=== PATIENT | male | born 1955 | race Caucasian/White ===

== ENCOUNTER → 2024-12-29 13:47 | Outpatient (REF) | payer MEDICARE, OTHER, SELFPAY | LOC: HWRCS 13:47 | PROVIDERS: ATTENDING PHYSICIAN Internal Medicine Cardiovascular Disease; FAMILY PHYSICIAN Internal Medicine | DX: I21.21 ST elevation (STEMI) myocardial infarction involving left circumflex coronary artery (principal); I25.10 Atherosclerotic heart disease of native coronary artery without angina pectoris; I25.5 Ischemic cardiomyopathy; I44.7 Left bundle-branch block, unspecified; I48.0 Paroxysmal atrial fibrillation | CPT/HCPCS: 93306 ==

== ENCOUNTER 2024-12-31 09:15 | Day surgery (SDC) | payer MEDICARE, OTHER, SELFPAY ==
[2024-12-31] VITALS (11 sets, daily range): BP systolic 103–124; BP diastolic 56–85; BMI 29.7
[2024-12-31 10:04] LABS: Glucose - Point of Care 111 mg/dl (70-99)
[2024-12-31] MEDS: NSS 1000 IV (12:55)
--- NOTE | 2024-12-31 13:01 | ITS.CL.CATH ---
[facility] - Catheterization
Cardiac Catheterization
Procedure Report:
CARDIAC CATHETERIZATION REPORT
Date of Procedure: 12/31/2024
Referring: Julian Elizabeth D.O.
Indication: Ventricular tachycardia, worsening cardiomyopathy.
PROCEDURE:
1. Right heart catheterization.
2. Coronary angiography.
A total of 0 minutes of procedural/moderate sedation was utilized. An independent medical claims representative was present to assist with and help manage the patient's level of consciousness and physiologic status.
ACCESS:
1. 6 [place] left radial artery using a modified Seldinger technique delete the under ultrasound guidance.
2. 5 [place] right antecubital vein using a modified Seldinger technique under ultrasound guidance.
CATHETERS:
1. 5 [place]ran balloon.
2. 6 [place] JR4.
3. 6 [place]ran JL 4.
HEMODYNAMIC DATA
Weight (kg): 86.6
AO (s/d/x, mmHg): 107/68/84
LV (s/x, mmHg): Not obtained.
PCWP (a/v/x, mmHg): 22/19/16
PA (s/d/x, mmHg): 43//31
RV (s/x, mmHg): 43/14
RA (a/v/x, mmHg): 15/14/12
SVC SvO2 (%): 62.1
IVC SvO2 (%): Not obtained.
RA SvO2 (%): Not obtained.
RV SvO2 (%): Not obtained.
PA SvO2 (%): 63.1
SaO2 (%): 89.4
Hbg (g/dL): 14.5
NANI
CO (L/min): 4.39
CI (L/min/m2): 2.17
Thermodilution
CO (L/min): Not performed.
CI (L/min/m2): Not performed.
TPG (mmHg): 15
PVR (Art Units): 3.41
SVR (dynes*seconds*cm^-5): 1312
AVO2 Diff (Volume %): 5.19
AV gradient (x, mmHg): Not obtained.
AV area (cm2): Not obtained.
MV gradient (x, mmHg): Not obtained.
MV area (cm2): Not obtained.
LEFT VENTRICULOGRAPHY: Not performed.
AORTOGRAPHY: Not performed.
CORONARY ANGIOGRAPHY
Dominance: Right.
Left Main: Large size, bifurcating vessel. There is no coronary artery disease.
LAD: Large size vessel giving rise to 1 large diagonal. There is an 80% lesion in the proximal vessel, immediately proximal and likely involving the origin of the diagonal.
Ramus: Congenitally absent.
Circumflex: Large size, nondominant vessel giving rise to 1 large obtuse marginal before terminating as a medium size posterolateral branch. A culotte bifurcation stent is present in the circumflex and OM. There is a 60-70% in-stent restenosis
lesion in the circumflex limb of the culotte bifurcation PCI.
RCA: Large size, dominant vessel with a large posterolateral arcade. Patent stents are visible in the proximal and mid vessel with no evidence of in-stent restenosis.
INTERVENTIONS
None.
Closure Device: Vascular band for the left radial artery, manual pressure for the right antecubital vein.
Radiation dose (mGy): 604
DAP (cm2.Gy): 29.3
Fluoroscopy time (minutes): 4.1
CONCLUSIONS:
1. Right dominant circulation with patent stents in the proximal and mid RCA with no evidence of ISR, a culotte bifurcation stent in the circumflex and obtuse marginal with a 60-70% ISR lesion in the circumflex limb and an 80% lesion in the
proximal LAD, likely involving the origin of the large first diagonal.
2. At least moderate aortic valve stenosis by echocardiography.
3. 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
4. Mildly elevated filling pressures, likely appropriate given degree of LV dysfunction (PCWP = 16 mmHg at 86.6 kg).
5. Mild precapillary and postcapillary pulmonary hypertension (mean PA = 31 mmHg, PCWP = 16 mmHg, cardiac output = 4.39 L/min, PVR = 3.41 Art units), primarily WHO group 2.
RECOMMENDATIONS:
1. Expectant management after cardiac catheterization via left radial and right antecubital approach.
2. Limited weight bearing on the left wrist for one week.
3. Consultation with CT surgery regarding optimal revascularization technique given two-vessel disease in the presence of diabetes involving the proximal LAD.
4. Consideration of aortic valve replacement.
5. OMT/GDMT as hemodynamics will tolerate.
6. Aggressive secondary prevention with inclisiran and ezetimibe.
Copy to: Julian Elizabeth D.O., Roshan Dudley M.D.
Julian Elizabeth, DO, FACC, FACP
[2024-12-31 13:08] LABS: Glucose - Point of Care 98 mg/dl (70-99)
== END 2024-12-31 15:30 | disposition home or self-care (01) ==
LOC: CATH 09:15
PROVIDERS: ATTENDING PHYSICIAN Internal Medicine Cardiovascular Disease; FAMILY PHYSICIAN Internal Medicine
DX: I35.0 Nonrheumatic aortic (valve) stenosis (principal); I25.10 Atherosclerotic heart disease of native coronary artery without angina pectoris; I25.5 Ischemic cardiomyopathy; I47.20 Ventricular tachycardia, unspecified; Z95.5 Presence of coronary angioplasty implant and graft; I27.29 Other secondary pulmonary hypertension; E11.9 Type 2 diabetes mellitus without complications
CPT/HCPCS: 82962; 93456; C1894; Q9967

== ENCOUNTER → 2025-01-27 10:52 | Outpatient (REF) | payer MEDICARE, OTHER, SELFPAY | LOC: RAD 10:52 | PROVIDERS: ATTENDING PHYSICIAN Thoracic Surgery (Cardiothoracic Vascular Surgery); FAMILY PHYSICIAN Internal Medicine | DX: I25.10 Atherosclerotic heart disease of native coronary artery without angina pectoris (principal); I35.0 Nonrheumatic aortic (valve) stenosis; Z01.810 Encounter for preprocedural cardiovascular examination | CPT/HCPCS: 74174; 75573; Q9967 ==

== ENCOUNTER → 2025-03-27 09:21 | Outpatient (REF) | payer MEDICARE, OTHER, SELFPAY | LOC: RAD 09:21 | PROVIDERS: ATTENDING PHYSICIAN Thoracic Surgery (Cardiothoracic Vascular Surgery); FAMILY PHYSICIAN Internal Medicine | DX: I25.10 Atherosclerotic heart disease of native coronary artery without angina pectoris (principal); Z01.810 Encounter for preprocedural cardiovascular examination; Z48.812 Encounter for surgical aftercare following surgery on the circulatory system; I87.2 Venous insufficiency (chronic) (peripheral) | CPT/HCPCS: 93970 ==

== ENCOUNTER → 2025-04-07 15:39 | Outpatient (REF) | payer MEDICARE, OTHER, SELFPAY | LOC: RAD 15:39 | PROVIDERS: ATTENDING PHYSICIAN Thoracic Surgery (Cardiothoracic Vascular Surgery); FAMILY PHYSICIAN Internal Medicine | DX: M79.641 Pain in right hand (principal) | CPT/HCPCS: 73130 ==

== ENCOUNTER 2025-05-04 07:40 | Inpatient (IN) | payer MEDICARE, OTHER, SELFPAY ==
[2025-04-16 12:11] VITALS: BMI 30.3
[2025-04-16 13:03] LABS: Hematocrit 48.4 % (39.0-52.0); Hemoglobin 15.9 g/dL (13.0-18.0); Mean Corp Hgb Conc. 32.9 g/dL (33.0-37.0); Mean Corpuscular Volume 98.8 fL (80.0-94.0); Nucleated Red Blood Cells % 0 % (-); Platelet Count 291 10^3/uL (130-400); Red Cell Dist. Width 14.2 % (11.5-14.5)
[2025-04-16 13:04] LABS: Urine Character Clear (Clear)
[2025-04-16 13:19] LABS: ALT (SGPT) 46 U/L (0-50); AST (SGOT) 38 U/L (17-59); Albumin 4.4 g/dl (3.5-5.0); Alkaline Phosphatase 111 U/L (38-126); Blood Urea Nitrogen 18 mg/dl (9-20); Calcium 9.3 mg/dl (8.4-10.2); Carbon Dioxide 27 mmol/L (22-30); Chloride 106 mmol/L (98-107); Estimated Creatinine Clearance 72 ml/min; Glucose 128 mg/dl (70-99); Potassium 4.5 mmol/L (3.5-5.1); Sodium 141 mmol/L (135-145); Total Protein 7.6 g/dl (6.3-8.2); eGFR > 60.00
[2025-04-16 13:20] LABS: INR 1.12; PT 14.9 Sec (11.4-14.6)
--- NOTE | 2025-04-16 13:30 | CM ---
Chart reviewed. Met with the patient in PAT. Reviewed with the patient in PAT preoperative and postoperative instructions and restrictions, along with showering guidelines. Gave patient 2 soaps and Cardiac Surgery Book. Patient is agreeable to
a visit by CT Transitional RN. Patient is independent of ADLS, lives alone in a 2 STH, 1 BRIDGER in the front, 12 BRIDGER in the back, 0 DME. Patient does enter through the rear. Patient with a supportive sister who can assist if needed. Plan is for the
patient to return home with CT Transitional RN. CM to follow
[2025-04-16 14:01] LABS: Glycohemoglobin (HgbA1c) 6.1 % (4.0-5.6)
[2025-04-16 14:14] LABS: Urine Red Blood Cell 0-2 /HPF (0-2); Urine Squamous Cell 0-2 /LPF (Few)
[2025-05-04] VITALS (9 sets, daily range): BP systolic 91–125; BP diastolic 67–86; BMI 30.3; BMI 27.8
--- NOTE | 2025-05-04 08:03 | W.CVOR.SURPR ---
CVOR Surgeon Immed Pre Op
-
I have examined this patient prior to performance of the scheduled procedure.
The patient's condition is unchanged from the time of the dictated/written History and
Physical and the patient is able to undergo the scheduled procedure.
[2025-05-04] MEDS: MAGNESIUM OXIDE 400 MG PO (08:22)
[2025-05-04] MEDS: PROTONIX 40 MG PO (08:22)
[2025-05-04] MEDS: BACTROBAN 2% OINTMENT 1 APPLIC NASAL ×2 (08:22→21:17)
[2025-05-04] MEDS: LOPRESSOR 25 MG PO (08:22)
--- NOTE | 2025-05-04 08:46 | PTCARENOTE ---
received pre op CVOR, confirmed shower x2 CORN SHUCKER and NPO since MN, interview questions and medication rec completed. Pt was clipped and prepped w CHG. Pre op meds administered as ordered.
[2025-05-04 09:38] LABS: ACT+ - POC 137 Seconds (82-134)
[2025-05-04 09:48] LABS: Urine Character Clear (Clear)
[2025-05-04 11:17] LABS: ACT+ - POC 528 Seconds (82-134)
[2025-05-04 11:31] LABS: B.E. - POC -0.7 mmol/L; Glucose - POC 123 mg/dl (70-99); HCO3 - POC 25 mmol/L (21-28); Hematocrit - POC 43 % PCV (42-52); Hemodilution- POC No; Hemoglobin Calculated - POC 14.6; Ionized Calcium - POC 1.18 mmol/L (1.15-1.33); Lactate - POC 0.82 mmol/L (0.36-0.75); O2 Saturation %Calculated-POC 97.9 % (94-98); PCO2 - POC 46 mmHg (35-48); PO2 - POC 108 mmHg (83-108); Potassium - POC 3.9 mmol/L (3.5-5.1); Sodium - POC 143 mmol/L (136-145); Specimen Type - POC Arterial; pH - POC 7.35 (7.35-7.45)
--- NOTE | 2025-05-04 11:38 | CM ---
Chart reviewed. Patient is in the OR today. Patient is independent of ADLS, lives alone in a 2 STH, 1 BRIDGER in the front, 12 BRIDGER in the back, 0 DME. Patient does enter through the rear. Patient with a supportive sister who can assist if needed.
Plan is for the patient to return home with CT Transitional RN. CM to follow
[2025-05-04 11:39] LABS: ACT+ - POC 486 Seconds (82-134)
[2025-05-04 11:56] LABS: ACT+ - POC 609 Seconds (82-134)
[2025-05-04 12:08] LABS: ACT+ - POC 589 Seconds (82-134)
[2025-05-04 12:36] LABS: ACT+ - POC 603 Seconds (82-134)
[2025-05-04 12:51] LABS: B.E. - POC 3.8 mmol/L; Glucose - POC 127 mg/dl (70-99); HCO3 - POC 28 mmol/L (21-28); Hematocrit - POC 36 % PCV (42-52); Hemodilution- POC Yes; Hemoglobin Calculated - POC 12.3; Ionized Calcium - POC 1.12 mmol/L (1.15-1.33); Lactate - POC 0.89 mmol/L (0.36-0.75); O2 Saturation %Calculated-POC 99.9 % (94-98); PCO2 - POC 39 mmHg (35-48); PO2 - POC 272 mmHg (83-108); POC Comment CPB; Potassium - POC 4.7 mmol/L (3.5-5.1); Sodium - POC 143 mmol/L (136-145); Specimen Type - POC Arterial; pH - POC 7.46 (7.35-7.45)
[2025-05-04 13:00] LABS: ACT+ - POC 528 Seconds (82-134)
[2025-05-04 13:17] LABS: ACT+ - POC 601 Seconds (82-134)
[2025-05-04 13:18] LABS: B.E. - POC 4.9 mmol/L; Glucose - POC 156 mg/dl (70-99); HCO3 - POC 30 mmol/L (21-28); Hematocrit - POC 36 % PCV (42-52); Hemodilution- POC Yes; Hemoglobin Calculated - POC 12.3; Ionized Calcium - POC 1.09 mmol/L (1.15-1.33); Lactate - POC < 0.30 mmol/L (0.36-0.75); O2 Saturation %Calculated-POC 100.0 % (94-98); PCO2 - POC 44 mmHg (35-48); PO2 - POC 418 mmHg (83-108); POC Comment CPB; Potassium - POC 4.8 mmol/L (3.5-5.1); Sodium - POC 141 mmol/L (136-145); Specimen Type - POC Arterial; pH - POC 7.44 (7.35-7.45)
[2025-05-04 13:19] LABS: B.E. - POC 4.3 mmol/L; Glucose - POC 139 mg/dl (70-99); HCO3 - POC 29 mmol/L (21-28); Hematocrit - POC 34 % PCV (42-52); Hemodilution- POC Yes; Hemoglobin Calculated - POC 11.7; Ionized Calcium - POC 1.07 mmol/L (1.15-1.33); Lactate - POC < 0.30 mmol/L (0.36-0.75); O2 Saturation %Calculated-POC 100.0 % (94-98); PCO2 - POC 40 mmHg (35-48); PO2 - POC 366 mmHg (83-108); POC Comment CPB; Potassium - POC 4.9 mmol/L (3.5-5.1); Sodium - POC 142 mmol/L (136-145); Specimen Type - POC Arterial; pH - POC 7.46 (7.35-7.45)
[2025-05-04 13:23] LABS: B.E. - POC 2.7 mmol/L; Glucose - POC 119 mg/dl (70-99); HCO3 - POC 28 mmol/L (21-28); Hematocrit - POC 36 % PCV (42-52); Hemodilution- POC Yes; Hemoglobin Calculated - POC 12.4; Ionized Calcium - POC 1.04 mmol/L (1.15-1.33); Lactate - POC 1.07 mmol/L (0.36-0.75); O2 Saturation %Calculated-POC 99.8 % (94-98); PCO2 - POC 43 mmHg (35-48); PO2 - POC 232 mmHg (83-108); POC Comment CPB; Potassium - POC 5.4 mmol/L (3.5-5.1); Sodium - POC 143 mmol/L (136-145); Specimen Type - POC Arterial; pH - POC 7.42 (7.35-7.45)
[2025-05-04 13:31] LABS: ACT+ - POC 482 Seconds (82-134)
[2025-05-04 13:47] LABS: ACT+ - POC 611 Seconds (82-134)
[2025-05-04 14:16] LABS: B.E. - POC 1.9 mmol/L; Glucose - POC 141 mg/dl (70-99); HCO3 - POC 26 mmol/L (21-28); Hematocrit - POC 36 % PCV (42-52); Hemodilution- POC Yes; Hemoglobin Calculated - POC 12.3; Ionized Calcium - POC 1.05 mmol/L (1.15-1.33); Lactate - POC 0.53 mmol/L (0.36-0.75); O2 Saturation %Calculated-POC 100.0 % (94-98); PCO2 - POC 40 mmHg (35-48); PO2 - POC 374 mmHg (83-108); POC Comment WARM; Potassium - POC 5.0 mmol/L (3.5-5.1); Sodium - POC 144 mmol/L (136-145); Specimen Type - POC Arterial; pH - POC 7.43 (7.35-7.45)
[2025-05-04 14:28] LABS: ACT+ - POC 159 Seconds (82-134)
[2025-05-04 14:40] LABS: B.E. - POC -1.5 mmol/L; Glucose - POC 137 mg/dl (70-99); HCO3 - POC 25 mmol/L (21-28); Hematocrit - POC 32 % PCV (42-52); Hemodilution- POC Yes; Hemoglobin Calculated - POC 10.8; Ionized Calcium - POC 1.19 mmol/L (1.15-1.33); Lactate - POC 1.30 mmol/L (0.36-0.75); O2 Saturation %Calculated-POC 96.9 % (94-98); PCO2 - POC 51 mmHg (35-48); PO2 - POC 100 mmHg (83-108); Potassium - POC 4.1 mmol/L (3.5-5.1); Sodium - POC 144 mmol/L (136-145); Specimen Type - POC Arterial; pH - POC 7.30 (7.35-7.45)
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
[2025-05-04 15:13] LABS: B.E. - POC -1.9 mmol/L; Glucose - POC 158 mg/dl (70-99); HCO3 - POC 25 mmol/L (21-28); Hematocrit - POC 34 % PCV (42-52); Hemodilution- POC Yes; Hemoglobin Calculated - POC 11.6; Ionized Calcium - POC 1.15 mmol/L (1.15-1.33); Lactate - POC 1.21 mmol/L (0.36-0.75); O2 Saturation %Calculated-POC 84.6 % (94-98); PCO2 - POC 53 mmHg (35-48); PO2 - POC 56 mmHg (83-108); Potassium - POC 4.4 mmol/L (3.5-5.1); Sodium - POC 143 mmol/L (136-145); Specimen Type - POC Arterial; pH - POC 7.28 (7.35-7.45)
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
[2025-05-04 16:06] LABS: Glucose - Point of Care 193 mg/dl (70-99)
[2025-05-04 16:10] LABS: B.E. -2.2 mmol/L; HCO3 25.6 mmol/L (21-28); O2 Saturation % 95.6 % (94-98); PCO2 57 mmHg (35-48); PO2 77 mmHg (83-108); Potassium 4.4 mMOL/L (3.5-5.1); Sodium 136 mMOL/L (136-145)
[2025-05-04 16:13] LABS: Hematocrit 34.6 % (39.0-52.0); Hemoglobin 11.5 g/dL (13.0-18.0); Platelet Count 194 10^3/uL (130-400)
[2025-05-04 16:22] LABS: INR 1.45; PT 17.9 Sec (11.4-14.6)
[2025-05-04 16:23] LABS: APTT 28.8 Sec (23.4-35.0)
[2025-05-04 16:32] LABS: Blood Urea Nitrogen 14 mg/dl (9-20); Estimated Creatinine Clearance 85 ml/min; Glucose 176 mg/dl (70-99); Magnesium 3.0 mg/dl (1.6-2.3)
[2025-05-04] MEDS: NSS 500 IV (16:33)
[2025-05-04] MEDS: CALCIUM GLUCONATE 100 IV ×2 (16:33→19:34)
[2025-05-04] MEDS: DILAUDID 0.5 MG IV (16:33)
--- NOTE | 2025-05-04 16:58 | W.PN.CD ---
Addendum entered and electronically signed by Ciaran Lin MD 05/04/25 17:24:
I saw and examined the patient.
The BUSINESS CONTINUITY MANAGER's note was reviewed and I agree with the note.
Comment: Monitor ECG
Wean vent as able
Requiring vasopressors wean as able
Original Note:
Today's Communication / Plan
-
Postoperative management per CT surgery
Junctional rhythm, follow telemetry
Impression / Plan
-
I/P: 69M with CAD (recurrent CAD/ISR), ischemic cardiomyopathy, HFrEF, moderate aortic stenosis, paroxysmal atrial fibrillation, hypertension, hypercholesterolemia, statin intolerance, PAD (left fem�pop bypass), mild COPD, and tobacco abuse presents
for cardiac surgery.
Primary resist coater developer: Dr. Elizabeth
CAD s/p CABG x 2 (RAUL-LAD, GSV-D) & AVR (#25 Inspiris Resilia) on 05/04/[address] Munoz
- Pre-LVEF 30-40%, unchanged post, mean gradient 7 mmHg, KELVIN occluded
- On mechanical ventilation with FiO2 at 100%
- EKG with junctional rhythm and wide QRS, LBBB chronic
- On Levophed and epinephrine drips
HFrEF, chronic
- Follow volume status during hospitalization
- Resume GDMT as able
- LEE/ARB/ARNI: Valsartan held preoperatively, sacubitril�valsartan was cost prohibitive
- SGLT2i: Can consider after recovery, was cost prohibitive in the past, can check Farxiga as pricing has recently changed
- MRA: Can consider post recovery
- Beta-reynaldo: Metoprolol on hold with junctional rhythm
- ICD: Not currently indicated
- Heart failure education
Paroxysmal atrial fibrillation
- Rhythm: Junctional
- Oral Anticoagulation: Apixaban 5 mg twice daily on hold
- [id number]: Score at least 5 (Heart failure, HTN, Diabetes Mellitus, Vascular disease, age 65-74)
NIDDM, HgbA1c 6.1%
PAD,
Nonsustained ventricular tachycardia, on amiodarone as an outpatient
LBBB, chronic
Hypertension, on Levophed and epinephrine, follow
Hypercholesterolemia, statin intolerance, on inclisiran with LDL below goal
Tobacco abuse, cigars daily, cessation recommended
Physical Exam
Vital Signs/Labs
Vital Signs
Temp Pulse Resp BP Pulse Ox
97.1 F 84 9 125/86 92
05/04/25 16:00 05/04/25 16:45 05/04/25 16:45 05/04/25 07:51 05/04/25 16:45
05/03/25 05/04/25 05/05/25
06:59 06:59 06:59
Actual Weight 85.2 kg
05/04/25 15:53
PT 17.9 Sec (11.4-14.6) H 05/04/25 15:53
INR 1.45 05/04/25 15:53
APTT 28.8 Sec (23.4-35.0) 05/04/25 15:53
Magnesium 3.0 mg/dl (1.6-2.3) H 05/04/25 15:53
Physical Exam
Constitutional: No acute distress and Comfortable
EENT: Anicteric and Moist mucous membranes
Cardiovascular: Rhythm & rate is regular and S1S2 is normal
Respiratory: Lungs clear to auscul. and Other (Mechanical ventilation)
GI: Soft, Distention absent and Flat
Neuro/Psych: Other (Sedated)
Other: Skin (Warm and dry)
Data Reviewed
-
Date of Service: May 04, 2025
EKG: Report Reviewed by me
Echo: Report Reviewed by me
Labs: Labs Reviewed by me
Old Records: Reviewed
[2025-05-04 17:07] LABS: B.E. - POC -5.2 mmol/L; Blood Urea Nitrogen - POC 13 mg/dl (3-120); Chloride - POC 107 mmol/L (96-111); Creatinine - POC 0.87 mg/dl (0.3-1.0); Glucose - POC 189 mg/dl (70-99); Glucose - Point of Care 167 mg/dl (70-99); HCO3 - POC 22 mmol/L (21-28); Hematocrit - POC 35 % PCV (42-52); Hemodilution- POC Yes; Hemoglobin Calculated - POC 11.8; Ionized Calcium - POC 1.13 mmol/L (1.15-1.33); Lactate - POC 1.86 mmol/L (0.36-0.75); O2 Saturation %Calculated-POC 91.7 % (94-98); PCO2 - POC 52 mmHg (35-48); PO2 - POC 75 mmHg (83-108); Potassium - POC 4.0 mmol/L (3.5-5.1); Sodium - POC 144 mmol/L (136-145); Specimen Type - POC Arterial; pH - POC 7.24 (7.35-7.45)
--- NOTE | 2025-05-04 17:30 | PTCARENOTE ---
Patient received from CVOR at 1600; Sedated and intubated; on monitor; VSS; DP and radial pulses present; Lungs diminished at bases; ETT size 8 positioned and secured at 24 cm @ lip; Ventilator settings SIMV 16/500/5/FiO2 100%; CTx4 to -20 cm wall
suction draining bloody drainage - no air leak, tidaling , or crepitus noted; Hypoactive BS; Richards catheter in place draining clear, yellow urine; Sternal incision glued & aquacel, approximated, CDI, RLE incision wrapped in LEE wrap - CDI; L radial
A-line in place, Mendez-georgie floated to 45 cm in RIJ Cordis - all lines zeroed and leveled; PIVx1; Levo/insulin/precedex/epi infusing - see nursing flowsheets for further details; see nursing documentation for further details.
[2025-05-04] MEDS: ALBUMIN 5% 250 IV (17:52)
[2025-05-04 18:16] LABS: Glucose - Point of Care 165 mg/dl (70-99)
[2025-05-04] MEDS: SUBLIMAZE 85 MCG IV (18:41)
[2025-05-04] MEDS: SUBLIMAZE 100 IV (18:43)
[2025-05-04 18:56] LABS: Glucose - Point of Care 154 mg/dl (70-99)
[2025-05-04 18:56] LABS: B.E. - POC -1.7 mmol/L; Blood Urea Nitrogen - POC 15 mg/dl (3-120); Chloride - POC 106 mmol/L (96-111); Creatinine - POC 1.06 mg/dl (0.3-1.0); Glucose - POC 173 mg/dl (70-99); HCO3 - POC 24 mmol/L (21-28); Hematocrit - POC 37 % PCV (42-52); Hemodilution- POC Yes; Hemoglobin Calculated - POC 12.6; Ionized Calcium - POC 1.15 mmol/L (1.15-1.33); Lactate - POC 2.76 mmol/L (0.36-0.75); O2 Saturation %Calculated-POC 95.9 % (94-98); PCO2 - POC 45 mmHg (35-48); PO2 - POC 87 mmHg (83-108); Potassium - POC 4.4 mmol/L (3.5-5.1); Sodium - POC 143 mmol/L (136-145); Specimen Type - POC Arterial; pH - POC 7.34 (7.35-7.45)
[2025-05-04] MEDS: LEVOPHED 250 IV (19:59)
--- NOTE | 2025-05-04 20:00 | PTCARENOTE ---
assumed care of pt from previous RN. pt intubated, sedated, responds to verbal stimuli. ETT size 8.0, 24 cm at the lip. Vent setting SIMV 18/600/5/5/80%. PERRLA. R IJ cordis w/ swan floated to 45cm. L radial a-line. all lines leveled, zeroed,
flushed. ST w/ PACs on tele-monitor. temp epicardial v-wires w/ back up settings VVI 50/15/2. CT x4 (mediastinal x2, L & R pleural) to -20cm wall suction, draining sanguineous drainage. no air leaks noted. abd s/n, hypoactive BS. polanco catheter
draining clear, yellow colored urine. all surgical sites stable. MSI w/ dressing, scant drainage. PIV intact. see worklist for complete nursing assessment, interventions, gtt titrations, VS, and I&Os.
[2025-05-04 20:10] LABS: Glucose - Point of Care 141 mg/dl (70-99)
[2025-05-04 20:58] LABS: B.E. -1.5 mmol/L; HCO3 23.7 mmol/L (21-28); O2 Saturation % 98.6 % (94-98); PCO2 41 mmHg (35-48); PO2 107 mmHg (83-108); Potassium 4.6 mMOL/L (3.5-5.1)
[2025-05-04 21:00] LABS: Hematocrit 33.4 % (39.0-52.0); Hemoglobin 11.2 g/dL (13.0-18.0); Platelet Count 191 10^3/uL (130-400)
[2025-05-04] MEDS: PRECEDEX 100 IV (21:16)
[2025-05-04] MEDS: ANCEF 5 IV (21:17)
[2025-05-04] MEDS: CALCIUM GLUCONATE 130 MG IV (21:31)
[2025-05-04 22:13] LABS: Glucose - Point of Care 135 mg/dl (70-99)
[2025-05-04] MEDS: ASPIRIN 300 MG RECTAL (22:28)
--- NOTE | 2025-05-04 23:00 | PTCARENOTE ---
bedside report received from previous RN. pt in bed, intubated, sedated, responds to verbal stimuli. pupils equal and reactive to light. #[address], 24 cm @ R lip. vent set to SIMV 18/600/5/5/60%. POX 95%. bilateral breath sounds present. CT x
4 intact to -20cm wall suction, drainage WNL, no air leak present. Precedex gtt infusing @ 0.7mcg, Fentanyl gtt infusing @ 25mcg. ST on monitor, HR 100s-110s. temp epicardial v-wires intact set to back up VVI 50/15/2. L radial art line in place. SBP
90s-100s. MAPs 70s. Levo gtt infusing @ 6mcg, Epi gtt infusing @ 2mcg. RIJ cordis + swan intact w KVOs infusing, swan floated to 45cm. last CI 1.89. PAPs 30s/20s. CVP ~ 8-10. bilateral radial and DP pulses palpable. no edema present. heart tones
clear. abdomen soft, nontender. hypoactive BS present. Insulin gtt infusing per glycemic protocol. polanco catheter in place, draining CYU, UO adequate. all surgical sites stable. PIV intact and patent. see worklist for full assessment, VS, and
interventions.
[2025-05-04 23:12] LABS: B.E. -0.7 mmol/L; HCO3 24.2 mmol/L (21-28); O2 Saturation % 97.9 % (94-98); PCO2 40 mmHg (35-48); PO2 87 mmHg (83-108); Potassium 4.8 mMOL/L (3.5-5.1)
[2025-05-04 23:56] LABS: Glucose - Point of Care 110 mg/dl (70-99)
[2025-05-05] VITALS (22 sets, daily range): BP systolic 75–102; BP diastolic 53–77; PULSE 2–92; O2SAT 92; BMI 28.8
[2025-05-05 00:41] LABS: Glucose - Point of Care 96 mg/dl (70-99)
[2025-05-05 00:43] LABS: B.E. 0.5 mmol/L; HCO3 25.4 mmol/L (21-28); O2 Saturation % 95.6 % (94-98); PCO2 41 mmHg (35-48); PO2 70 mmHg (83-108); Potassium 4.7 mMOL/L (3.5-5.1)
[2025-05-05] MEDS: NSS 250 IV ×2 (02:06→06:10)
[2025-05-05 02:16] LABS: Glucose - Point of Care 107 mg/dl (70-99)
--- NOTE | 2025-05-05 03:00 | PTCARENOTE ---
no acute changes in assessment. pt remains intubated. vent set to SIMV 18/600/5/5/40%. POX 98%. CT output WNL. Precedex gtt infusing @ 0.1mcg, Fentanyl gtt infusing @ 100mcg. pt wakes to verbal stimuli, follows commands but is agitated when awake.
SR/ST on monitor, HR 90s-100s. SBP 90s-100s. MAPs 70s. Levo gtt infusing @ 6mcg, Epi gtt infusing @ 2mcg. last CI 2.11. Insulin gtt maintained per protocol. UO adequate. all surgical sites stable.
[2025-05-05 03:04] LABS: Glucose - Point of Care 107 mg/dl (70-99)
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
[2025-05-05 04:14] LABS: Glucose - Point of Care 106 mg/dl (70-99)
[2025-05-05 04:24] LABS: B.E. -0.4 mmol/L; HCO3 24.8 mmol/L (21-28); O2 Saturation % 97.3 % (94-98); PCO2 42 mmHg (35-48); PO2 79 mmHg (83-108)
[2025-05-05 04:37] LABS: Hematocrit 30.9 % (39.0-52.0); Hemoglobin 10.6 g/dL (13.0-18.0); Mean Corp Hgb Conc. 34.3 g/dL (33.0-37.0); Mean Corpuscular Volume 98.7 fL (80.0-94.0); Platelet Count 173 10^3/uL (130-400); Red Cell Dist. Width 13.9 % (11.5-14.5)
[2025-05-05 04:49] LABS: Blood Urea Nitrogen 18 mg/dl (9-20); Calcium 8.5 mg/dl (8.4-10.2); Carbon Dioxide 25 mmol/L (22-30); Chloride 110 mmol/L (98-107); Estimated Creatinine Clearance 75 ml/min; Glucose 103 mg/dl (70-99); Magnesium 2.2 mg/dl (1.6-2.3); Potassium 4.8 mmol/L (3.5-5.1); Sodium 138 mmol/L (135-145); eGFR > 60.00
[2025-05-05] MEDS: SYNTHROID PO (05:25)
[2025-05-05 05:55] LABS: Glucose - Point of Care 99 mg/dl (70-99)
[2025-05-05] MEDS: ANCEF 5 IV ×2 (06:05→14:25)
[2025-05-05] MEDS: REGLAN 10 MG IV (06:20)
[2025-05-05] MEDS: LEVOPHED 250 IV ×2 (06:45→16:20)
--- NOTE | 2025-05-05 07:00 | PTCARENOTE ---
Assumed care of patient from production shift supervisor RN. AAO x3 but drowsy. On Vent, SIMV 18/600/5/5/40% pulse ox 91-92%. Via #8 ETT at 24 cm rt lip. Junction w/ BBB on monitor. Epicardial wires to back up of VVI 50. No pacing at present. Drips infusing
on handoff as follows : Epinephrine, Levophed, insulin, Fentanyl. See flow sheet for totals/titrations. RT IJ cordis with swan at 45 cm. Lt radial A line transducing. Lines leveled, recalibrated and flushed. Chest tubes x 4 to - 20 cm
suction. No air leak or crepitus noted. Draining moderate amount of serosanguineous drainage. Surgical sites c,d,i. Trace anasarca appreciated. Pulses palpable.
--- NOTE | 2025-05-05 07:17 | PTCARENOTE ---
CPAP trial initiated at [address] surgeon request. Pt tolerating, will obtain ABG per protocol.
--- NOTE | 2025-05-05 07:26 | W.PN.CD ---
Today's Communication / Plan
-
Routine post operative care.
CPAP trial.
Titrate pressors/inotropes for a MAP > 65 mmHg, CI > 1.8 L/min/m2.
Not ready for diuresis.
Impression / Plan
-
Impression/Plan: 69M with CAD (recurrent CAD/ISR), ischemic cardiomyopathy, HFrEF, moderate aortic stenosis, paroxysmal atrial fibrillation, hypertension, hypercholesterolemia, statin intolerance, PAD (left fem�pop bypass), mild COPD, and tobacco
abuse admitted for elective CABG/SAVR.
Primary electrochemist: Dr. Elizabeth
#CAD
-Chronic, progressive.
-s/p CABG x 2 (RAUL-LAD, GSV-D) & SAVR (#25 Inspiris Resilia) with Dr. Munoz, 05/04/2025.
-Pre-LVEF 30-40%, unchanged post.
-Routine post operative course.
-Wean vent to extubation.
-PA catheter: PA = 37/26, RA = 19 mmHg, SVR = 1013.
-Titrate pressors for a MAP > 65 mmHg, CI > 1.8 L/min/m2.
-Resume amiodarone. Metoprolol remains on hold while on pressors/inotropes.
#HFrEF
-Chronic, stable.
-Weight is up 3.2 kg.
-Resume GDMT as hemodynamics will tolerate:
-Diuretics: None currently. Not ready for diuresis.
-Beta reynaldo: Metoprolol succinate 12.5 mg daily on hold.
-ACEI/ARB/ARNI: Valsartan 40 mg daily on hold. Sacubitril�valsartan was cost prohibitive.
-SGLT2i: Previously cost prohibitive. We will check dapagliflozin as pricing has recently changed.
-MRA: Consider post recovery.
-ICD: Not currently indicated.
#Paroxysmal atrial fibrillation
-Rhythm: NSR with long 1st degree AVB vs. junctional escape with underlying LBBB.
-Rate/rhythm control with recent MAZE, amiodarone. Beta reynaldo on hold post op.
-SCC1DR4-GIVb = 5 (Heart failure, HTN, Diabetes Mellitus, Vascular disease, age 65-74).
-CVA prevention with LAAE. Resume apixaban 5 mg BID when deemed safe by CT surgery.
#NIDDM
-Chronic, stable.
-HgbA1c 6.1%.
#PAD
-Chronic, stable.
-Hx of LE bypass.
#Nonsustained ventricular tachycardia
-Hx.
-On amiodarone as an outpatient.
#Hypertension
-Chronic, currently hypotensive.
-Home antihypertensives on hold.
#Hypercholesterolemia
-Chronic, stable.
-Statin intolerance.
-On inclisiran with LDL below goal (< 55).
#Tobacco abuse
-Chronic, daily cigars.
-Cessation recommended.
Critical Care Time = 40 minutes.
Subjective/Interval History:
CABG/SAVR yesterday.
Remained intubated/sedated overnight due to COPD, likely under-appreciated pulmonary disease.
CPAP trial started this morning.
Weight is up 3.2 kg (88.5 <-- 85.2).
DATA:
CV Surgery, 05/04/2025:
PROCEDURES:
1. Median sternotomy
2. Takedown of RAUL (narrow pedicle)
3. Endoscopic harvest/prep of RLE GSV
4. [facility] MAZE procedure
5. ELAA (45mm AtriClip)
6. CABG x 2 (RAUL to LAD, GSV to D)
7. AVR (#25 Inspiris Resilia)
Cardiac Catheterization, 12/31/2024:
CONCLUSIONS:
1. Right dominant circulation with patent stents in the proximal and mid RCA with no evidence of ISR, a culotte bifurcation stent in the circumflex and obtuse marginal with a 60-70% ISR lesion in the circumflex limb and an 80% lesion in the
proximal LAD, likely involving the origin of the large first diagonal.
2. At least moderate aortic valve stenosis by echocardiography.
3. 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
4. Mildly elevated filling pressures, likely appropriate given degree of LV dysfunction (PCWP = 16 mmHg at 86.6 kg).
5. Mild precapillary and postcapillary pulmonary hypertension (mean PA = 31 mmHg, PCWP = 16 mmHg, cardiac output = 4.39 L/min, PVR = 3.41 Art units), primarily WHO group 2.
TTE, 12/29/2024:
CONCLUSIONS
Mildly dilated LV with moderate to severely reduced systolic function.
LVEF is approximately 30% by visual estimation.
Severe global hypokinesis with more pronounced hypokinesis of the basal to mid
inferior and inferoseptal young.
Stage I diastolic dysfunction suggestive of abnormal relaxation.
Normal right ventricular size and function.
Mild to moderate mitral regurgitation.
Moderate aortic stenosis; mean gradient of 22 mmHg.
Compared to prior from March 28, 2023 AV mean gradient is slightly lower at 22
mmHg, previously 27 mmHg.
Physical Exam
Vital Signs/Labs
Vital Signs
Temp Pulse Resp BP Pulse Ox
36.9 C 86 12 94/75 91
05/05/25 07:00 05/05/25 07:15 05/05/25 07:01 05/05/25 06:08 05/05/25 07:15
05/03/25 05/04/25 05/05/25
11:59 11:59 11:59
Actual Weight 85.2 kg 88.5 kg
05/05/25 04:01
05/05/25 04:01
PT 17.9 Sec (11.4-14.6) H 05/04/25 15:53
INR 1.45 05/04/25 15:53
APTT 28.8 Sec (23.4-35.0) 05/04/25 15:53
Magnesium 2.2 mg/dl (1.6-2.3) 05/05/25 04:01
Physical Exam
Constitutional: No acute distress and Comfortable
EENT: Anicteric and Moist mucous membranes
Cardiovascular: Rhythm & rate is regular, Pedal edema is absent, JVD pressure is normal, S1S2 is normal and Murmur/rub/gallop absent
Respiratory: Respiratory effort normal, Lungs clear to auscul., Wheeze Absent, Crackles Absent, Rhonchi Absent and Other (ET tube in place.)
GI: Soft, Distention absent, Flat, Non tender and Normal bowel sounds
Neuro/Psych: AO x 3
Data Reviewed
-
Date of Service: May 05, 2025
Medical Decision Making: Reviewed Test Results, Independent Historian Assessment and Test Interpretation
EKG: Tracing Personally Visualized and interpreted and Report Reviewed by me
Echo: Report Reviewed by me
X-Ray/CT/US/MRI/NUC/PET: Image Personally Visualized and interpreted and Report Reviewed by me
Medical Tests (PFT, Pathology etc): Image Personally Visualized and interpreted and Report Reviewed by me
Labs: Labs Reviewed by me
Old Records: Reviewed
[2025-05-05] MEDS: BACTROBAN 2% OINTMENT 1 APPLIC NASAL (07:42)
[2025-05-05] MEDS: DUONEB 3 ML INH ×4 (07:44→19:40)
[2025-05-05] MEDS: LIDOCAINE 4% PATCH 1 PATCH TOPICAL (07:51)
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
[2025-05-05 08:05] LABS: B.E. -2.3 mmol/L; Glucose - Point of Care 129 mg/dl (70-99); HCO3 22.5 mmol/L (21-28); O2 Saturation % 89.8 % (94-98); PCO2 38 mmHg (35-48)
[2025-05-05 08:07] LABS: PO2 58 mmHg (83-108)
[2025-05-05] MEDS: NOVOLIN R INSULIN INFUSION 100 IV (08:35)
--- NOTE | 2025-05-05 09:02 | PTCARENOTE ---
urine output down to 20 ml last [address] PA. orders obtained.
[2025-05-05] MEDS: ADRENALIN 250 IV (09:09)
[2025-05-05 09:19] LABS: B.E. -1.8 mmol/L; HCO3 23.1 mmol/L (21-28); O2 Saturation % 92.6 % (94-98); PCO2 39 mmHg (35-48); PO2 63 mmHg (83-108)
[2025-05-05] MEDS: FLEXBUMIN 50 IV ×2 (09:21→17:39)
[2025-05-05] MEDS: DILAUDID 0.25 MG IV (10:01)
[2025-05-05 10:06] LABS: Glucose - Point of Care 103 mg/dl (70-99)
--- NOTE | 2025-05-05 10:16 | PTCARENOTE ---
Extubated to BIPAP 15 L pulse ox 89%. Pt tolerating. Medicated for pain. VSS. Will continue to monitor.
[2025-05-05] MEDS: LASIX 20 MG IV ×2 (10:19→14:17)
[2025-05-05] MEDS: VENTOLIN NEBULES 2.5 MG INH (10:20)
--- NOTE | 2025-05-05 10:22 | RESPNOTE ---
Respiratory: patient extubated @[address] Godoy without incident. Placed on mid-flow 15 LPM then Bilevel 17/7 cmH2O 15 LPM. SpO2 89%.
[2025-05-05 11:16] LABS: B.E. -2.4 mmol/L; HCO3 22.5 mmol/L (21-28); O2 Saturation % 89.5 % (94-98); PCO2 38 mmHg (35-48); Potassium 4.7 mMOL/L (3.5-5.1); Sodium 137 mMOL/L (136-145)
[2025-05-05 11:18] LABS: PO2 58 mmHg (83-108)
[2025-05-05] MEDS: OFIRMEV 100 IV ×2 (11:42→22:33)
[2025-05-05 12:00] LABS: Glucose - Point of Care 116 mg/dl (70-99)
[2025-05-05 13:53] LABS: Glucose - Point of Care 100 mg/dl (70-99)
--- NOTE | 2025-05-05 13:57 | CM ---
Chart reviewed. Patient extubated this morning. Patient is independent of ADLS, lives alone in a 2 STH, front door 1 BRIDGER, back door 12 BRIDGER, 0 DME. Patient with a supportive sister who can assist when needed. Plan is for the patient to return
home with CT Transitional RN. CM to follow
--- NOTE | 2025-05-05 14:00 | PTCARENOTE ---
Assumed care of patient from previous RN. AAO x3 but drowsy. On Bipap, 15L 20/10 pulse ox 88-92%. Junction w/ BBB on monitor HR 90s. Epicardial wires to back up of VVI /. No pacing at present. Drips infusing on handoff as follows :
Epinephrine, Levophed, insulin. See flow sheet for totals/titrations. RT IJ cordis with swan at 45 cm. Lt radial A line transducing. Lines leveled, recalibrated and flushed. Chest tubes x 4 to - 20 cm suction. No air leak or crepitus noted.
Draining moderate amount of serosanguineous drainage. Surgical sites c,d,i. Trace anasarca appreciated. Pulses palpable. Richards draining clear yellow urine. plan of care discussed and questions encouraged. call edouard within reach
[2025-05-05] MEDS: TORADOL 15 MG IV (14:25)
--- NOTE | 2025-05-05 14:44 | W.PN.ANS.POP ---
Anesthesia Post Operative
- Anesthesia Post Op Note
Vital Signs Stable-See Nursing Note: Yes
Airway Patent: Yes
Adequate Pain Control: Yes
Change in Mental Status: No
Current Postoperative Nausea & Vomiting: No
Anesthesia Complications: No
General Anesthetic Recall: No
Unplanned Admission: No
Post Op Hydration Adequate: Yes
[2025-05-05] MEDS: NSS IV (15:30)
[2025-05-05 16:04] LABS: Glucose - Point of Care 127 mg/dl (70-99)
[2025-05-05] MEDS: LR 250 ML IV (16:20)
--- NOTE | 2025-05-05 16:21 | PTCARENOTE ---
Resp at bedside, pt attempted to wean off Bipap to midflow NC. Pt became hypotensive SBP 60s and pulse Ox 76%; Levo titrated per protocol; pt placed back on BiPAP and CTPA at bedside; Per CTPA LR 250ml bolus to be given now; SBP now 100s and Pulse
Ox 93%.
--- NOTE | 2025-05-05 16:24 | RESPNOTE ---
Respiratory: attempted to give patient break from Bilevel placed on 15 LPM mid-flow cannula, SpO2 decreased to 76% and BP dropped. RN at bedside returned patient to Bilevel 16/10 cmh2O and 15 LPM SpO2 increased to 91%.
[2025-05-05] MEDS: DILAUDID 0.5 MG IV ×3 (16:36→23:32)
[2025-05-05 18:05] LABS: Glucose - Point of Care 104 mg/dl (70-99)
[2025-05-05 19:07] LABS: Procalcitonin 1.10 ng/ml (0.0-0.25)
[2025-05-05 19:58] LABS: Glucose - Point of Care 125 mg/dl (70-99)
--- NOTE | 2025-05-05 20:00 | PTCARENOTE ---
assumed care of pt from previous RN. pt drowsy, responds to verbal stimuli. oriented x4. R IJ cordis w/ swan floated to 45cm. L radial a-line. all lines leveled, zeroed, flushed. accelerated junctional on tele-monitor. temp epicardial v-wires. back
up settings VVI 50/15/2. POX 86-94% on BIPAP 16/10, [address] x4 (R & L pleural, mediastinal x2) to -20cm wall suction, draining sanguineous drainage. no air leaks noted. abd s/n, firm, round. +B/S. polanco catheter draining clear, yellow colored
urine. all surgical sites stable, CDI. PIV intact. see worklist for complete nursing assessment, interventions, gtt titrations, VS, and I&Os.
[2025-05-05] MEDS: UNASYN IV (20:06)
[2025-05-05] MEDS: VIBRAMYCIN 260 MG IV (20:43)
[2025-05-05] MEDS: PLAVIX PO (21:50)
[2025-05-05] MEDS: LOW STRENGTH ASPIRIN PO (21:50)
[2025-05-05] MEDS: BACTROBAN 2% OINTMENT NASAL (21:51)
[2025-05-05] MEDS: REMOVE LIDOCAINE PATCH 1 PATCH REMOVE (22:12)
[2025-05-05 22:13] LABS: Glucose - Point of Care 113 mg/dl (70-99)
[2025-05-05 22:18] LABS: B.E. 0.1 mmol/L; HCO3 24.7 mmol/L (21-28); O2 Saturation % 89.9 % (94-98); PCO2 39 mmHg (35-48); Potassium 4.2 mMOL/L (3.5-5.1)
[2025-05-05 22:20] LABS: PO2 57 mmHg (83-108)
[2025-05-05] MEDS: CALCIUM GLUCONATE 100 IV (22:34)
[2025-05-05 23:51] LABS: Glucose - Point of Care 101 mg/dl (70-99)
[2025-05-05 23:54] LABS: B.E. 0.9 mmol/L; HCO3 25.2 mmol/L (21-28); O2 Saturation % 87.0 % (94-98); PCO2 38 mmHg (35-48)
[2025-05-05 23:59] LABS: PO2 54 mmHg (83-108)
[2025-05-06] VITALS (23 sets, daily range): BP systolic 87–119; BP diastolic 60–83; BMI 29.0
[2025-05-06] MEDS: FLEXBUMIN 50 IV ×2 (00:09→09:32)
--- NOTE | 2025-05-06 00:10 | RESPNOTE ---
PT has been hypoxic in ABGs and maintained low O2 sats, while maxed out on the BIPAP (Vivo) with 16/10 and 15 L. Pt was placed on the HFNC in hopes that his PaO2 would go up, but it did not. PT was then placed on the V60 because he needed the FIO2
at 100%. With the BIPAP he was on, the O2 is determined by liter flow, but it wasn't enough to maintain adequate O2 sats. PT was placed on the same BIPAP settings on the V60 and placed on an FIO2 of 100%. He immediately responded to the V60, his
sats went up from the low 80s to the high 90s within minutes. Will continue to monitor respiratory status and wean o2 when appropriate. The PT's only complaint is that the mask is dry. A humidifier was placed for comfort, but he is still
complaining about it. ETCO2 was aded to the circuit per pulmonary, but is not really correlating to his actual CO2 on ABGs.
--- NOTE | 2025-05-06 00:15 | PTCARENOTE ---
trailed pt on hiflo at 55 L O2. PO2- 54. pt placed back on Bipap w/ 100% FiO2. assessment remains otherwise unchanged. CT drainage WNL.
[2025-05-06 01:04] LABS: B.E. 0.1 mmol/L; HCO3 24.7 mmol/L (21-28); O2 Saturation % 98.5 % (94-98); PCO2 39 mmHg (35-48); PO2 106 mmHg (83-108); Potassium 4.1 mMOL/L (3.5-5.1)
[2025-05-06] MEDS: CORDARONE 103 MG IV (01:16)
[2025-05-06 02:09] LABS: Magnesium 2.0 mg/dl (1.6-2.3)
[2025-05-06] MEDS: LEVOPHED 250 IV ×3 (02:09→22:31)
[2025-05-06] MEDS: UNASYN IV (02:10)
[2025-05-06 02:17] LABS: Glucose - Point of Care 138 mg/dl (70-99)
[2025-05-06] MEDS: MAGNESIUM SULFATE 102 GRAMS IV (03:04)
[2025-05-06] MEDS: DILAUDID 0.5 MG IV ×4 (03:04→16:25)
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
[2025-05-06 04:07] LABS: Glucose - Point of Care 114 mg/dl (70-99)
[2025-05-06 04:59] LABS: B.E. 0.7 mmol/L; HCO3 25.4 mmol/L (21-28); O2 Saturation % 98.5 % (94-98); PCO2 40 mmHg (35-48); PO2 101 mmHg (83-108); Potassium 4.0 mMOL/L (3.5-5.1)
[2025-05-06 05:09] LABS: Hematocrit 26.1 % (39.0-52.0); Hemoglobin 8.9 g/dL (13.0-18.0); Mean Corp Hgb Conc. 34.1 g/dL (33.0-37.0); Mean Corpuscular Volume 98.9 fL (80.0-94.0); Platelet Count 125 10^3/uL (130-400); Red Cell Dist. Width 14.4 % (11.5-14.5)
[2025-05-06] MEDS: CORDARONE 518 MG IV (05:15)
[2025-05-06 05:23] LABS: Blood Urea Nitrogen 24 mg/dl (9-20); Calcium 8.6 mg/dl (8.4-10.2); Carbon Dioxide 27 mmol/L (22-30); Chloride 109 mmol/L (98-107); Estimated Creatinine Clearance 75 ml/min; Glucose 99 mg/dl (70-99); Magnesium 2.5 mg/dl (1.6-2.3); Potassium 4.1 mmol/L (3.5-5.1); Sodium 138 mmol/L (135-145); eGFR > 60.00
[2025-05-06] MEDS: DILAUDID 0.25 MG IV (06:08)
[2025-05-06 06:14] LABS: Glucose - Point of Care 84 mg/dl (70-99)
[2025-05-06] MEDS: DUONEB 3 ML INH ×3 (07:26→14:31)
--- NOTE | 2025-05-06 07:30 | W.PN.CD ---
Today's Communication / Plan
-
Increase furosemide to 40 mg IV this morning and monitor output.
If BP does not tolerate bolus dose of diuretics, consider bumetanide 0.5 mg/hour to avoid peaks/valleys.
Wean BiPAP as able.
ABX for possible PNA per Pulm/CC.
Pain/chest tube management per CTS.
Impression / Plan
-
Impression/Plan: 69M with CAD (recurrent CAD/ISR), ischemic cardiomyopathy, HFrEF, moderate aortic stenosis, paroxysmal atrial fibrillation, hypertension, hypercholesterolemia, statin intolerance, PAD (left fem�pop bypass), mild COPD, and tobacco
abuse admitted for elective CABG/SAVR.
Primary occupational therapy aides teacher: Dr. Elizabeth
#CAD
-Chronic, progressive.
-s/p CABG x 2 (RAUL-LAD, GSV-D) & SAVR (#25 Inspiris Resilia) with Dr. Munoz, 05/04/2025.
-Pre-LVEF 30-40%, unchanged post.
-Routine post operative course.
-PA catheter: PA = 37/26, RA = 19 mmHg, SVR = 1013.
-Titrate pressors for a MAP > 65 mmHg, CI > 1.8 L/min/m2.
-Resume amiodarone. Metoprolol remains on hold while on pressors/inotropes.
#HFrEF
-Acute on chronic.
-Weight continues to climb and labs show evidence of dilution in spite of diuretics yesterday.
-Resume GDMT as hemodynamics will tolerate:
-Diuretics: Increase furosemide to 40 mg IV this morning and monitor. If BP does not tolerate, consider bumetanide gtt at 0.5 mg/hour to avoid peaks/valleys.
-Beta reynaldo: Metoprolol succinate 12.5 mg daily on hold.
-ACEI/ARB/ARNI: Valsartan 40 mg daily on hold. Sacubitril�valsartan was cost prohibitive.
-SGLT2i: Previously cost prohibitive. We will check dapagliflozin as pricing has recently changed.
-MRA: Consider post recovery.
-ICD: Not currently indicated.
#Paroxysmal atrial fibrillation
-Rhythm: NSR with long 1st degree AVB vs. junctional escape with underlying LBBB.
-Rate/rhythm control with recent MAZE, amiodarone. Beta reynaldo on hold post op.
-[id number] = 5 (Heart failure, HTN, Diabetes Mellitus, Vascular disease, age 65-74).
-CVA prevention with LAAE. Resume apixaban 5 mg BID when deemed safe by CT surgery.
#NIDDM
-Chronic, stable.
-HgbA1c 6.1%.
#PAD
-Chronic, stable.
-Hx of LE bypass.
#Nonsustained ventricular tachycardia
-Hx.
-On amiodarone as an outpatient.
#Hypertension
-Chronic, currently hypotensive.
-Home antihypertensives on hold.
#Hypercholesterolemia
-Chronic, stable.
-Statin intolerance.
-On inclisiran with LDL below goal (< 55).
#Tobacco abuse
-Chronic, daily cigars.
-Cessation recommended.
Critical Care Time = 42 minutes.
Subjective/Interval History:
Extubated to BiPAP yesterday.
Pulm/CC concerned for HAP given leukocytosis, CXR suggesting retrocardiac opacity.
Procalcitonin 1.1. Ampicillin/sulbactam started (6 day course).
Furosemide 20 mg given 2x yesterday.
Weight up 0.6 kg.
Hbg has fallen 1.7 g. Platelets have fallen from 173 to 125.
ABG = 7.4/40/101/98.5 on BiPAP FiO2 80%.
EKG shows accelerated junctional rhythm with known underlying LBBB.
Patient does report post operative pain and shortness in breath.
DATA:
CV Surgery, 05/04/2025:
PROCEDURES:
1. Median sternotomy
2. Takedown of RAUL (narrow pedicle)
3. Endoscopic harvest/prep of RLE GSV
4. [facility] MAZE procedure
5. ELAA (45mm AtriClip)
6. CABG x 2 (RAUL to LAD, GSV to D)
7. AVR (#25 Inspiris Resilia)
Cardiac Catheterization, 12/31/2024:
CONCLUSIONS:
1. Right dominant circulation with patent stents in the proximal and mid RCA with no evidence of ISR, a culotte bifurcation stent in the circumflex and obtuse marginal with a 60-70% ISR lesion in the circumflex limb and an 80% lesion in the
proximal LAD, likely involving the origin of the large first diagonal.
2. At least moderate aortic valve stenosis by echocardiography.
3. 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
4. Mildly elevated filling pressures, likely appropriate given degree of LV dysfunction (PCWP = 16 mmHg at 86.6 kg).
5. Mild precapillary and postcapillary pulmonary hypertension (mean PA = 31 mmHg, PCWP = 16 mmHg, cardiac output = 4.39 L/min, PVR = 3.41 Art units), primarily WHO group 2.
TTE, 12/29/2024:
CONCLUSIONS
Mildly dilated LV with moderate to severely reduced systolic function.
LVEF is approximately 30% by visual estimation.
Severe global hypokinesis with more pronounced hypokinesis of the basal to mid
inferior and inferoseptal young.
Stage I diastolic dysfunction suggestive of abnormal relaxation.
Normal right ventricular size and function.
Mild to moderate mitral regurgitation.
Moderate aortic stenosis; mean gradient of 22 mmHg.
Compared to prior from March 28, 2023 AV mean gradient is slightly lower at 22
mmHg, previously 27 mmHg.
Physical Exam
Vital Signs/Labs
Vital Signs
Temp Pulse Resp BP Pulse Ox
37.1 C 94 22 107/66 91
05/06/25 06:00 05/06/25 07:00 05/06/25 07:00 05/06/25 07:00 05/06/25 06:45
05/04/25 05/05/25 05/06/25
11:59 11:59 11:59
Actual Weight 85.2 kg 88.5 kg 89.1 kg
05/06/25 04:01
05/06/25 04:01
PT 17.9 Sec (11.4-14.6) H 05/04/25 15:53
INR 1.45 05/04/25 15:53
APTT 28.8 Sec (23.4-35.0) 05/04/25 15:53
Magnesium 2.5 mg/dl (1.6-2.3) H 05/06/25 04:01
Physical Exam
Constitutional: No acute distress and Comfortable
EENT: Anicteric and Moist mucous membranes
Cardiovascular: Rhythm & rate is regular, Pedal edema is absent and Rub present
Respiratory: Labored respirations, Crackles Present and Rhonchi Present
GI: Soft, Distention absent, Flat, Non tender and Normal bowel sounds
Neuro/Psych: AO x 3
Data Reviewed
-
Date of Service: May 06, 2025
Medical Decision Making: Reviewed Test Results, Independent Historian Assessment and Test Interpretation
EKG: Tracing Personally Visualized and interpreted and Report Reviewed by me
Echo: Report Reviewed by me
X-Ray/CT/US/MRI/NUC/PET: Image Personally Visualized and interpreted and Report Reviewed by me
Medical Tests (PFT, Pathology etc): Image Personally Visualized and interpreted and Report Reviewed by me
Labs: Labs Reviewed by me
[2025-05-06] MEDS: ADRENALIN 250 IV ×2 (07:38→22:31)
--- NOTE | 2025-05-06 08:00 | PTCARENOTE ---
assumed care of pt from previous RN. pt AAOx4. accelerated junctional on tele-monitor. HR 90s. temp epicardial v-wires set to VVI 50/15/2. +1 generalized edema. +pulses. lung sounds coarse and diminished. POX 86-94% on NIV BIPAP 16/10, 100% fiO2.
CT x4 to -20cm wall suction, draining sanguineous drainage. no air leaks/tidaling/crepitus noted. abd s/n, firm, round. +B/S. polanco catheter draining clear, yellow urine. all surgical sites stable, CDI. CT dressing changed, c/d/i. R IJ cordis w/
swan floated to 45cm. L radial a-line. all lines leveled, zeroed, flushed. PIV intact. see worklist for complete nursing assessment, interventions, gtt titrations, VS, and I&Os. plan of care discussed call edouard within reach.
[2025-05-06 08:05] LABS: Glucose - Point of Care 141 mg/dl (70-99)
[2025-05-06] MEDS: OFIRMEV 100 IV (08:19)
[2025-05-06] MEDS: BACTROBAN 2% OINTMENT 1 APPLIC NASAL ×2 (08:19→20:41)
[2025-05-06] MEDS: LASIX 20 MG IV (08:20)
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
[2025-05-06] MEDS: LOW STRENGTH ASPIRIN 81 MG PO (08:56)
[2025-05-06] MEDS: SYNTHROID 25 MCG PO (08:56)
[2025-05-06] MEDS: PLAVIX 75 MG PO (08:56)
--- NOTE | 2025-05-06 09:00 | RESPNOTE ---
Patient was removed from NIV and placed on a HFNC at 55L Fio2 100% for morning PO medication administration and mouth care by RN. Patient quickly experienced oxygen desaturations to 69% therefore the patient was returned to NIV via full face mask
with oxygen saturations recovering to 90%.
--- NOTE | 2025-05-06 09:10 | PTCARENOTE ---
Respiratory at bedside pt removed from NIV and placed to HFNC 55L for AM meds and mouth care. pt then began to desat. pox 70%. pt placed back on NIV. pox recovering to 90%. CTPA made aware.
[2025-05-06 09:28] LABS: B.E. - POC -2.5 mmol/L; Blood Urea Nitrogen - POC 17 mg/dl (3-120); Chloride - POC 113 mmol/L (96-111); Creatinine - POC 0.78 mg/dl (0.3-1.0); Glucose - POC 98 mg/dl (70-99); HCO3 - POC 21 mmol/L (21-28); Hematocrit - POC 21 % PCV (42-52); Hemodilution- POC No; Hemoglobin Calculated - POC 7.3; Ionized Calcium - POC 1.03 mmol/L (1.15-1.33); Lactate - POC 1.78 mmol/L (0.36-0.75); O2 Saturation %Calculated-POC 91.0 % (94-98); PCO2 - POC 30 mmHg (35-48); PO2 - POC 57 mmHg (83-108); Potassium - POC 2.8 mmol/L (3.5-5.1); Sodium - POC 144 mmol/L (136-145); Specimen Type - POC Arterial; pH - POC 7.45 (7.35-7.45)
[2025-05-06 09:55] LABS: Glucose - Point of Care 117 mg/dl (70-99)
[2025-05-06 10:02] LABS: B.E. 0.9 mmol/L; HCO3 25.2 mmol/L (21-28); O2 Saturation % 94.7 % (94-98); PCO2 38 mmHg (35-48); PO2 66 mmHg (83-108); Potassium 3.6 mMOL/L (3.5-5.1); Sodium 137 mMOL/L (136-145)
[2025-05-06] MEDS: KCL 50 IV ×2 (10:22→20:42)
--- NOTE | 2025-05-06 11:41 | CM ---
Chart reviewed. Patient still remains in critical condition. Patient is independent of ADLS, lives alone in a 2 STH, 1 BRIDGER in the front and 12 BRIDGER in the back, 0 DME. Patient with a supportive sister. Plan is for the patient to return home
with CT Transitional RN. CM to follow
[2025-05-06] MEDS: CALCIUM GLUCONATE 100 IV (11:42)
[2025-05-06] MEDS: VIBRAMYCIN 260 MG IV (11:45)
[2025-05-06] MEDS: LIDOCAINE 4% PATCH TOPICAL (11:57)
[2025-05-06 12:05] LABS: Glucose - Point of Care 109 mg/dl (70-99)
[2025-05-06 14:04] LABS: Glucose - Point of Care 86 mg/dl (70-99)
[2025-05-06] MEDS: LASIX 40 MG IV (14:18)
[2025-05-06] MEDS: MORPHINE SULFATE 2 MG IV (14:18)
[2025-05-06 14:58] LABS: C-Reactive Protein 233.00 mg/L (0.0-10.00)
[2025-05-06 15:51] LABS: Glucose - Point of Care 127 mg/dl (70-99)
[2025-05-06 15:53] LABS: B.E. -0.8 mmol/L; HCO3 23.2 mmol/L (21-28); O2 Saturation % 93.4 % (94-98); PCO2 35 mmHg (35-48); PO2 64 mmHg (83-108); Potassium 4.0 mMOL/L (3.5-5.1); Sodium 137 mMOL/L (136-145)
--- NOTE | 2025-05-06 17:12 | W.SUR.POST ---
Surgical Immediate Post Op
Note
Bedside Endotracheal Intubation Procedure
Date of procedure: 05/06/2025
Pre Op Diagnosis: Acute hypoxic respiratory failure
Post Op Diagnosis: Same as above
Procedure Performed: Endotracheal intubation
Primary Proceduralist: Dr. Godoy
Secondary Surgeons: N/A
Anesthesia/RSI: 20 mg etomidate, 100mg ketamine + 100 mg succinylcholine
Estimated Blood Loss: N/A
Fluids: N/A
Drains/Shunts: N/A
Specimens/Cultures: N/A
Doppler/Duplex/Angio (Y/N): N/A
Complications: No immediate complications
Procedure details: Patient was preoxygenated with BVM at 100% FiO2. RSI given as above and then patient placed into the sniff position, and S3 glidescope inserted into the oropharynx with glottis easily visible. Size 8.0 ETT inserted into glottis
and seen going through cords. Stiffening wire then removed. Satisfactory ETT position was confirmed via color capnometry. ETT was secured with ETT-vargas and tape. CXR is ordered and pending. There were no immediate complications.
[2025-05-06 17:19] LABS: B.E. - POC -1.5 mmol/L; Blood Urea Nitrogen - POC 23 mg/dl (3-120); Chloride - POC 106 mmol/L (96-111); Creatinine - POC 1.07 mg/dl (0.3-1.0); Glucose - POC 188 mg/dl (70-99); HCO3 - POC 27 mmol/L (21-28); Hematocrit - POC 29 % PCV (42-52); Hemodilution- POC No; Hemoglobin Calculated - POC 9.7; Ionized Calcium - POC 1.57 mmol/L (1.15-1.33); Lactate - POC 4.16 mmol/L (0.36-0.75); O2 Saturation %Calculated-POC 60.8 % (94-98); PCO2 - POC 63 mmHg (35-48); PO2 - POC 38 mmHg (83-108); Potassium - POC 3.6 mmol/L (3.5-5.1); Sodium - POC 142 mmol/L (136-145); Specimen Type - POC Arterial; pH - POC 7.24 (7.35-7.45)
[2025-05-06] MEDS: SUBLIMAZE 50 MCG IV (17:19)
[2025-05-06] MEDS: NSS 500 IV (17:20)
[2025-05-06] MEDS: DIPRIVAN 100 IV ×3 (17:20→22:30)
[2025-05-06 17:29] LABS: B.E. -2.9 mmol/L; HCO3 24.0 mmol/L (21-28); O2 Saturation % 77.8 % (94-98); PCO2 51 mmHg (35-48)
[2025-05-06 17:30] LABS: PO2 51 mmHg (83-108)
[2025-05-06] MEDS: NIMBEX 13 MG IV (17:31)
[2025-05-06] MEDS: NOVOLIN R INSULIN INFUSION 100 IV (17:44)
[2025-05-06] MEDS: SUBLIMAZE 100 IV ×2 (17:45→22:32)
--- NOTE | 2025-05-06 18:28 | PTCARENOTE ---
pt decompensated on AVAPS. RT, Dr. Munoz, CT MALGORZATA and Dr. Godoy at bedside. Pt intubated. Drips titrated per Dr. Munoz. Post intubated CXR obtained, ETT adjusted by RT and Dr. Godoy. Pt continues to desat. Decision was made to place the pt on
ECMO. Pt transported to [facility] w Dr. Munoz, CT malgorzata, Dr. Godoy and RT. Pt's sister updated via telephone. Awaiting bed availably at [facility].
[2025-05-06 18:30] LABS: Glucose - Point of Care 157 mg/dl (70-99)
--- NOTE | 2025-05-06 18:34 | W.PN.UPDATE ---
Update Note
Progress Note Update
Case was discussed with CT surgeon, Dr. Munoz, and given that the patient has been hypoxic down to 88% most of the day on noninvasive ventilation at 100% FiO2 and appearing uncomfortable/tachypneic, decision made to intubate. Patient was intubated
by myself. Procedure had no immediate complications however following this he was significantly hypoxic, likely due to the recruitment. Ventilator adjustments were made including increasing PEEP to a size 14, adjusting tidal volume given that the
peak pressures were 37�38, and also adjusting the peak flow as he has a prolonged expiratory phase given his COPD. Initial CXR showed that the ETT was just below the cords and ETT was advanced with appropriate placement seen on repeat CXR.
Adjusting the ETT did not lead to a marked improvement in the level of hypoxia. Patient was dyssynchronous with ventilator and required sedation/paralysis. Despite this, he remained hypoxic to the mid 60s and decision made to pursue V�V ECMO.
Patient was brought to the Produce Manager at around 6:[address] surgery RESTAURANT CULINARY MANAGER updated family. Patient to remain full code. Plan is to transfer patient to [facility] after he is cannulated for ECMO and will start ECMO here while awaiting bed at [facility].
[2025-05-06] MEDS: DUONEB INH (19:30)
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
[2025-05-06 19:50] LABS: Glucose - Point of Care 156 mg/dl (70-99)
[2025-05-06 19:59] LABS: B.E. - POC -1.0 mmol/L; Blood Urea Nitrogen - POC 22 mg/dl (3-120); Chloride - POC 104 mmol/L (96-111); Creatinine - POC 1.11 mg/dl (0.3-1.0); Glucose - POC 161 mg/dl (70-99); HCO3 - POC 23 mmol/L (21-28); Hematocrit - POC 25 % PCV (42-52); Hemodilution- POC Yes; Hemoglobin Calculated - POC 8.5; Ionized Calcium - POC 1.23 mmol/L (1.15-1.33); Lactate - POC 3.70 mmol/L (0.36-0.75); O2 Saturation %Calculated-POC 96.9 % (94-98); PCO2 - POC 36 mmHg (35-48); PO2 - POC 88 mmHg (83-108); Potassium - POC 3.7 mmol/L (3.5-5.1); Sodium - POC 141 mmol/L (136-145); Specimen Type - POC Arterial; pH - POC 7.42 (7.35-7.45)
--- NOTE | 2025-05-06 20:00 | PTCARENOTE ---
received pt from [facility] into room 2266 s/p VV ECMO cannulation. operations planner @ bedside. pt intubated and sedated on propofol and fentanyl gtts. vent set to AC 12/550/7/100%. POX 94%. bilateral breath sounds present. CT x4 intact to -20cm wall suction,
drainage WNL, no air leak present, pleur-evacs changes per CT PA on arrival. PAPs 50s/30s. junctional rhythm w BBB on monitor, HR 80s. temp epicardial v-wires set to backup VVI 50/15/2. +1 generalized edema. +peripheral pulses. abd s/n, firm, round.
+B/S. polanco catheter draining clear, yellow urine. UO adequate. all surgical sites stable, CDI. RIJ cordis w swan in place w KVOs infusing. L radial art line in place. SBP 90s-110s. Levo gtt infusing @ 12mcg. Epi gtt infusing @ 4mcg. all lines
leveled, zeroed, flushed. PIV intact and patent. see worklist for full assessment, VS, and interventions. pt's sister @ bedside and updated by Dr. Munoz and CT FIREWALL ENGINEER Ijeoma.
[2025-05-06 20:03] LABS: B.E. -1.1 mmol/L; HCO3 23.5 mmol/L (21-28); O2 Saturation % 99.1 % (94-98); PCO2 38 mmHg (35-48); PO2 102 mmHg (83-108); Potassium 3.9 mMOL/L (3.5-5.1); Sodium 138 mMOL/L (136-145)
[2025-05-06 20:05] LABS: Hematocrit 22.9 % (39.0-52.0); Hemoglobin 7.8 g/dL (13.0-18.0); Mean Corp Hgb Conc. 34.1 g/dL (33.0-37.0); Mean Corpuscular Volume 97.9 fL (80.0-94.0); Platelet Count 106 10^3/uL (130-400); Red Cell Dist. Width 14.5 % (11.5-14.5)
[2025-05-06 20:16] LABS: Fibrinogen 537 MG/DL (199-459)
[2025-05-06 20:17] LABS: INR 1.85; PT 21.8 Sec (11.4-14.6)
[2025-05-06 20:19] LABS: Triglycerides 64 mg/dl (10-149)
[2025-05-06 20:20] LABS: ALT (SGPT) 24 U/L (0-50); AST (SGOT) 75 U/L (17-59); Albumin 3.0 g/dl (3.5-5.0); Alkaline Phosphatase 61 U/L (38-126); Blood Urea Nitrogen 26 mg/dl (9-20); Calcium 9.0 mg/dl (8.4-10.2); Carbon Dioxide 26 mmol/L (22-30); Chloride 108 mmol/L (98-107); Estimated Creatinine Clearance 68 ml/min; Glucose 148 mg/dl (70-99); LDH 872 U/L (120-246); Magnesium 1.9 mg/dl (1.6-2.3); Potassium 3.9 mmol/L (3.5-5.1); Sodium 138 mmol/L (135-145); Total Protein 5.2 g/dl (6.3-8.2); eGFR > 60.00
[2025-05-06 20:33] LABS: APTT > 200 Sec (23.4-35.0)
[2025-05-06] MEDS: ANCEF 10 IV ×2 (20:40)
[2025-05-06] MEDS: PROTONIX IV 40 MG IV (20:41)
[2025-05-06] MEDS: REFRESH CELLUVISC GEL 1 DROPS OPHTH (20:41)
[2025-05-06] MEDS: NSS (PRESERVATIVE FREE) 10 ML IV (20:41)
[2025-05-06] MEDS: REMOVE LIDOCAINE PATCH 1 PATCH REMOVE (20:42)
[2025-05-06] MEDS: MAGNESIUM SULFATE 100 IV (20:42)
--- NOTE | 2025-05-06 20:52 | ITS.CL.PN ---
Abrasive Sawyer - Procedure Note
Procedure
Procedure Note:
Extracorporeal Membranous Oxygenation (ECMO) Placement
Date of Procedure: 05/06/2025
Referring Provider: Zhen Munoz M.D.
Indication: Refractory severe hypoxic respiratory failure.
Splitting Machine Tender(s): Julian Elizabeth D.O., Zhen Munoz M.D.
Access:
Outflow: 25 Welsh left common femoral vein using modified Seldinger technique under ultrasound guidance.
Return: 25 Welsh right common femoral vein using a modified Seldinger technique under ultrasound guidance.
Supplemental: 6 Welsh right common femoral artery using a modified Seldinger technique under ultrasound guidance.
ECMO Flow (L/min): 4.6
PreECMO O2 sat (%): 56
PostECMO O2 sat (%): 91
PreECMO BP (s/d/x): 87/61
PostECMO BP (s/d/x): 101/65
Estimated blood loss (mL): 50
Narrative:
The patient was brought to the engineer geophysical laboratory, placed on the operating table and prepped/draped in standard sterile fashion. Access was obtained in the bilateral femoral veins. Supplemental access was obtained in the right common femoral artery. A
standard J-wire was advanced into the SVC using an AL-1 catheter. The J-wire was replaced with an Amplatz superstiff wire. A #25 Welsh venous outflow cannula was placed in the left common femoral vein and positioned hepatic vein/IVC junction.
The J-Wire was re-advanced into the SVC and exchanged for an Amplatz Superstiff wire using the AL-1 catheter. A #25 Welsh return cannula was placed in the right common femoral vein and advanced to the RA/SVC junction. Heparin 5000 units was given.
The ECMO tubing was removed from the packaging after the circuit had been appropriately primed. The lines were clamped and cut, then brought onto the field. The wire and dilator were removed from the venous outflow cannula and subsequently
clamped. The wire and dilator were removed from the venous return cannula and likewise clamped. Using a bulb syringe, the venous outflow cannula and outflow tubing were joined in a wet to wet connection, confirming that there was no air at the
connection. Similarly, the venous return cannula was joined to the return tubing using a bulb syringe for de-airing and a wet to wet connection. After confirming that there was no air/bubbles in the circuit, the outflow and return tubes and
cannulas were unclamped and the ECMO circuit was started.
We observed excellent color change between the outflow and return tubing/cannulas. Flow through the circuit was 4.6 l/min. oxygen saturation immediately improved to >90%.
The outflow and return cannulas were sutured in place and multiple points. The cannulas were covered with appropriate surgical dressings to preserve sterility.
The patient was transferred back to the CVICU to await transport to the [facility].
CONCLUSIONS
1. Refractory hypoxic respiratory failure s/p successful placement of VV ECMO with immediate improvement in oxygen saturation.
RECOMMENDATIONS
1. Expedited transfer to [facility] for continuation of VV ECMO and determination definitive management.
2. Maintain anticoagulation with heparin gtt, goal PTT 40-60 seconds.
Copy To: Zhen Munoz M.D., Roshan Dudley M.D.
Julian Elizabeth D.O., [facility]
[2025-05-06 21:51] LABS: Glucose - Point of Care 201 mg/dl (70-99)
--- NOTE | 2025-05-06 22:45 | PTCARENOTE ---
[facility] transport @ bedside. CT RAMONA Yip and Dr. Munoz @ bedside. pt transferred without incidence. Report called to JANIYA Jang @ [facility]: phone # [phone].
[2025-05-08 11:01] LABS: ACT-LR - POC 232 Seconds (116-155)
== END 2025-05-06 23:00 | disposition short-term general hospital (02) | DRG 3 ==
LOC: CVICU 07:40
PROVIDERS: Anesthesiology; Nurse Practitioner; Physician Assistant Medical; ADMITTING PHYSICIAN Thoracic Surgery (Cardiothoracic Vascular Surgery); CONSULT PHYSICIAN Internal Medicine Critical Care Medicine; FAMILY PHYSICIAN Internal Medicine
PROC: 06BP4ZZ Excision of Right Saphenous Vein, Percutaneous Endoscopic Approach (ICD-10-PCS; 2025-05-04)
PROC: 02100ZC Bypass Coronary Artery, One Artery from Thoracic Artery, Open Approach (ICD-10-PCS; 2025-05-04)
PROC: B24BZZ4 Ultrasonography of Heart with Aorta, Transesophageal (ICD-10-PCS; 2025-05-04)
PROC: 021009W Bypass Coronary Artery, One Artery from Aorta with Autologous Venous Tissue, Open Approach (ICD-10-PCS; 2025-05-04)
PROC: 02RF08Z Replacement of Aortic Valve with Zooplastic Tissue, Open Approach (ICD-10-PCS; 2025-05-04)
PROC: 5A1221Z Performance of Cardiac Output, Continuous (ICD-10-PCS; 2025-05-04)
PROC: 02L70CK Occlusion of Left Atrial Appendage with Extraluminal Device, Open Approach (ICD-10-PCS; 2025-05-04)
PROC: 02580ZZ Destruction of Conduction Mechanism, Open Approach (ICD-10-PCS; 2025-05-04)
PROC: 5A09357 Assistance with Respiratory Ventilation, Less than 24 Consecutive Hours, Continuous Positive Airway Pressure (ICD-10-PCS; 2025-05-05)
PROC: 0BH17EZ Insertion of Endotracheal Airway into Trachea, Via Natural or Artificial Opening (ICD-10-PCS; 2025-05-06)
PROC: 30233N1 Transfusion of Nonautologous Red Blood Cells into Peripheral Vein, Percutaneous Approach (ICD-10-PCS; 2025-05-06)
PROC: 5A1 Extracorporeal or Systemic Assistance and Performance, Physiological Systems, Performance (ICD-10-PCS; 2025-05-06)
PROC: 5A1935Z Respiratory Ventilation, Less than 24 Consecutive Hours (ICD-10-PCS; 2025-05-06)
DX: I35.0 Nonrheumatic aortic (valve) stenosis (principal); J95.821 Acute postprocedural respiratory failure; R57.8 Other shock; I50.22 Chronic systolic (congestive) heart failure; D62 Acute posthemorrhagic anemia; J98.11 Atelectasis; Z99.11 Dependence on respirator [ventilator] status; I25.10 Atherosclerotic heart disease of native coronary artery without angina pectoris; I48.0 Paroxysmal atrial fibrillation; I34.0 Nonrheumatic mitral (valve) insufficiency; I44.7 Left bundle-branch block, unspecified; E11.51 Type 2 diabetes mellitus with diabetic peripheral angiopathy without gangrene; I11.0 Hypertensive heart disease with heart failure; M19.90 Unspecified osteoarthritis, unspecified site; K59.09 Other constipation; E03.9 Hypothyroidism, unspecified; J43.8 Other emphysema; I25.5 Ischemic cardiomyopathy; Y83.2 Surgical operation with anastomosis, bypass or graft as the cause of abnormal reaction of the patient, or of later complication, without mention of misadventure at the time of the procedure; E86.1 Hypovolemia; E78.00 Pure hypercholesterolemia, unspecified; F17.290 Nicotine dependence, other tobacco product, uncomplicated; I25.2 Old myocardial infarction; Z79.01 Long term (current) use of anticoagulants; Z79.82 Long term (current) use of aspirin; Z79.84 Long term (current) use of oral hypoglycemic drugs; Z79.899 Other long term (current) drug therapy; Z82.49 Family history of ischemic heart disease and other diseases of the circulatory system; Z95.5 Presence of coronary angioplasty implant and graft
CPT/HCPCS: 33259; 33946; 36415; 71045; 80048; 80053; 81003; 81015; 82248; 82330; 82565; 82805; 82810; 82947; 82962; 83036; 83605; 83615; 83735; 83880; 84132; 84145; 84302; 84478; 84520; 85014; 85018; 85025; 85027; 85049; 85347; 85384; 85610; 85730; 86140; 86850; 86900; 86901; 86920; 87070; 88305; 88311; 93005; 93308; 93312; 93320; 93325; 93650; 93880; 94002; 94003; 94010; 94060; 94640; 94660; 99406; C1713; C1769; C1894; J1325; J1939; P9016; P9045; P9047